=== PATIENT | male | born 1930 | race Caucasian/White ===

== ENCOUNTER 2018-05-07 09:14 | Inpatient (IN) ==
--- NOTE | 2018-05-07 09:22 | ED ---
HPI General Chief Complaint: Anxiety Stated Complaint: Evac/ Anxiety Time Seen by Provider: 05/07/18 09:19 Source: patient Mode of arrival: EMS Limitations: no limitations History of Present Illness HPI narrative: Primary care physician is Dr. GERSON knox Only allergies listed are nice and nontender Past medical history significant for atrial fibrillation, hypertension, anxiety on Xanax. Hyperlipidemia diabetes pancreatitis carotid artery stenosis CABG, kidney disease bradycardia. Patient woke up today feeling startled, feeling a fast heartbeat and anxious like in nature. patient denies meredith/cp/back pain/flank pain... After further discussion it was found that patient took himself off of Zoloft and Xanax... Patient currently denies any active chest pain. MD complaint: Reports rapid heart beat, "heart racing" and palpitations Duration: now resolved Severity: moderate Context: Reports occurred during rest Arrhythmia history: Reports on anti-coagulants Associated symptoms: Reports denies other symptoms Related Data Home Medications Medication Instructions Recorded Confirmed alprazolam [Xanax] 0.5 mg PO BID PRN 05/07/18 05/07/18 glipizide 5 mg PO BID 05/07/18 05/07/18 pioglitazone [Actos] 5 mg PO DAILY 05/07/18 05/07/18 ramipril 5 mg PO DAILY 05/07/18 05/07/18 warfarin 5 mg PO DIRECTED 05/07/18 05/07/18 Allergies Allergy/AdvReac Type Severity Reaction Status Date / Time niacin Allergy Mild Hives Verified 05/07/18 12:07 ANTARA Allergy Mild Hives Uncoded 05/07/18 12:07 Review of Systems ROS: all other systems reviewed are negative PMFSH History History Provided By: Patient Medical History Medical History Afib (Acute) Bradycardia (Acute) Carotid artery stenosis (Acute) Coronary artery disease involving coronary bypass graft (Acute) Diabetes mellitus (Acute) Dizziness (Acute) Headache (Acute) Hyperlipemia (Acute) Hypertension (Acute) Kidney disease (Acute) Pancreatitis (Acute) Prostate atrophy (Acute) Sleep apnea in adult (Acute) Syncope (Acute) Surgical History Surgical History History of coronary artery bypass surgery (Acute) Family History Family History Other No pertinent family history Social History Social History Substance History: No History of Abuse Second Hand Smoke Exposure: No Smoking Status: Never smoker How Often Do You Have a Drink Containing Alcohol: 2 to 3 times a week Recent Travel in [facility] within the Last 8 Weeks: No Recent Out of Country Travel within the Last 8 Weeks: No Exam Narrative Exam Narrative: GENERAL: Elderly male in no acute distress SKIN: Warm and dry. HEAD: Atraumatic. Normocephalic. EYES: Pupils equal and round. No scleral icterus. No injection or drainage. ENT: No nasal bleeding or discharge. Mucous membranes pink and moist. NECK: Trachea midline. No JVD. CARDIOVASCULAR: Regular rate and rhythm. no rubs or gallops RESPIRATORY: No accessory muscle use. Clear to auscultation. Breath sounds equal bilaterally. GASTROINTESTINAL: Abdomen soft, non-tender, nondistended. No rebound or guarding MUSCULOSKELETAL: Extremities without clubbing, cyanosis, or edema. No obvious deformities. NEUROLOGICAL: Awake and alert. No obvious cranial nerve deficits. Motor grossly within normal limits. Five out of 5 muscle strength in the arms and legs. Normal speech. PSYCHIATRIC: Appropriate mood and affect; insight and judgment normal. Course Initial Documented Vital Signs Temperature 98.3 F 05/07/18 09:24 Pulse Rate 82 05/07/18 09:24 Respiratory Rate 16 05/07/18 09:24 Blood Pressure 183/77 H 05/07/18 09:24 Pulse Oximetry 97 05/07/18 09:24 Last Documented Vital Signs Temperature 98.3 F 05/07/18 09:24 Pulse Rate 63 05/07/18 14:28 Respiratory Rate 16 05/07/18 14:28 Blood Pressure 149/73 H 05/07/18 14:28 Pulse Oximetry 96 05/07/18 12:17 Medical Decision Making MDM Narrative Medical decision making narrative: No leukocytosis no anemia no left shift. However there is some slight thrombocytopenia of 118,000 Appropriately anticoagulated with an INR of 2.0 Normal electrolytes except for random glucose of 227 Normal kidney liver and pancreatic functions Chest x-ray read by radiologist as no acute cardiopulmonary disease. Otherwise median sternotomy wires are noted. CK-MB normal at 2.9 however elevated troponin at 0.18 TSH within normal limits at 2.7 [facility] from [place] requested transfer due to lack of cardiac stenting/cath, d/ w vessel master rpt troponin .23 Medical Screen Exam Complete: Yes Emergency Medical Condition: Yes Lab Data Result diagrams: 05/07/18 10:00 05/07/18 10:00 Lab Results 05/07/18 05/07/18 05/07/18 Range/Units 10:00 10:00 10:00 CBC w Diff Auto diff final WBC 6.9 (4.0-11.0) th/mm3 RBC 5.22 (4.50-5.90) mil/mm3 Hgb 14.6 (13.0-17.0) gm/dL Hct 45.4 (39.0-51.0) % MCV 87.0 (80.0-100.0) fL MCH 28.0 (27.0-34.0) pg MCHC 32.2 (32.0-36.0) % RDW 15.4 (11.6-17.2) % Plt Count 118 L (150-450) th/mm3 MPV 9.9 (7.0-11.0) fL Neut % (Auto) 76.6 H (16.0-70.0) % Lymph % (Auto) 14.4 (9.0-44.0) % Hickman % (Auto) 7.6 (0.0-8.0) % Eos % (Auto) 0.8 (0.0-4.0) % Baso % (Auto) 0.6 (0.0-2.0) % Neut # (Auto) 5.3 (1.8-7.7) th/mm3 Lymph # (Auto) 1.0 (1.0-4.8) th/mm3 Hickman # (Auto) 0.5 (0.0-0.9) th/mm3 Eos # (Auto) 0.1 (0.0-0.4) th/mm3 Baso # (Auto) 0.0 (0.0-0.2) th/mm3 WBC Differential . Differential Comment . PT 20.0 H (9.8-11.6) sec INR 2.0 Ratio APTT 34.9 H (23.4-31.7) sec Sodium 138 (136-145) meq/L Potassium 4.0 (3.5-5.1) meq/L Chloride 103 (98-107) meq/L Carbon Dioxide 27.8 (21.0-32.0) meq/L Anion Gap 7 (5-15) meq/L BUN 19 H (7-18) mg/dL Creatinine 1.20 (0.60-1.30) mg/dL Estimated GFR 57 L (>89) mL/min POC Glucose (68-110) mg/dl Random Glucose 227 H (74-106) mg/dL Calcium 8.8 (8.5-10.1) mg/dL Total Bilirubin 0.9 (0.2-1.0) mg/dL AST 16 (15-37) U/L ALT 22 (12-78) U/L Alkaline Phosphatase 68 (45-117) U/L Total Creatine Kinase 217 (39-308) U/L CK-MB (CK-2) 2.9 (0.5-3.6) ng/mL Troponin I 0.18 H (0.02-0.05) ng/mL B-Natriuretic Peptide (0-100) pg/mL Total Protein 7.1 (6.4-8.2) g/dL Albumin 3.7 (3.4-5.0) g/dL Lipase 168 (73-393) U/L TSH 2.710 (0.358-3.740) uIU/mL 05/07/18 05/07/18 05/07/18 Range/Units 10:00 12:22 13:06 CBC w Diff WBC (4.0-11.0) th/mm3 RBC (4.50-5.90) mil/mm3 Hgb (13.0-17.0) gm/dL Hct (39.0-51.0) % MCV (80.0-100.0) fL MCH (27.0-34.0) pg MCHC (32.0-36.0) % RDW (11.6-17.2) % Plt Count (150-450) th/mm3 MPV (7.0-11.0) fL Neut % (Auto) (16.0-70.0) % Lymph % (Auto) (9.0-44.0) % Hickman % (Auto) (0.0-8.0) % Eos % (Auto) (0.0-4.0) % Baso % (Auto) (0.0-2.0) % Neut # (Auto) (1.8-7.7) th/mm3 Lymph # (Auto) (1.0-4.8) th/mm3 Hickman # (Auto) (0.0-0.9) th/mm3 Eos # (Auto) (0.0-0.4) th/mm3 Baso # (Auto) (0.0-0.2) th/mm3 WBC Differential Differential Comment PT (9.8-11.6) sec INR Ratio APTT (23.4-31.7) sec Sodium (136-145) meq/L Potassium (3.5-5.1) meq/L Chloride (98-107) meq/L Carbon Dioxide (21.0-32.0) meq/L Anion Gap (5-15) meq/L BUN (7-18) mg/dL Creatinine (0.60-1.30) mg/dL Estimated GFR (>89) mL/min POC Glucose 200 H (68-110) mg/dl Random Glucose (74-106) mg/dL Calcium (8.5-10.1) mg/dL Total Bilirubin (0.2-1.0) mg/dL AST (15-37) U/L ALT (12-78) U/L Alkaline Phosphatase (45-117) U/L Total Creatine Kinase 237 (39-308) U/L CK-MB (CK-2) 3.0 (0.5-3.6) ng/mL Troponin I 0.23 H (0.02-0.05) ng/mL B-Natriuretic Peptide 217 H (0-100) pg/mL Total Protein (6.4-8.2) g/dL Albumin (3.4-5.0) g/dL Lipase (73-393) U/L TSH (0.358-3.740) uIU/mL 05/07/18 Range/Units 13:43 CBC w Diff WBC (4.0-11.0) th/mm3 RBC (4.50-5.90) mil/mm3 Hgb (13.0-17.0) gm/dL Hct (39.0-51.0) % MCV (80.0-100.0) fL MCH (27.0-34.0) pg MCHC (32.0-36.0) % RDW (11.6-17.2) % Plt Count (150-450) th/mm3 MPV (7.0-11.0) fL Neut % (Auto) (16.0-70.0) % Lymph % (Auto) (9.0-44.0) % Hickman % (Auto) (0.0-8.0) % Eos % (Auto) (0.0-4.0) % Baso % (Auto) (0.0-2.0) % Neut # (Auto) (1.8-7.7) th/mm3 Lymph # (Auto) (1.0-4.8) th/mm3 Hickman # (Auto) (0.0-0.9) th/mm3 Eos # (Auto) (0.0-0.4) th/mm3 Baso # (Auto) (0.0-0.2) th/mm3 WBC Differential Differential Comment PT (9.8-11.6) sec INR Ratio APTT (23.4-31.7) sec Sodium (136-145) meq/L Potassium (3.5-5.1) meq/L Chloride (98-107) meq/L Carbon Dioxide (21.0-32.0) meq/L Anion Gap (5-15) meq/L BUN (7-18) mg/dL Creatinine (0.60-1.30) mg/dL Estimated GFR (>89) mL/min POC Glucose 159 H (68-110) mg/dl Random Glucose (74-106) mg/dL Calcium (8.5-10.1) mg/dL Total Bilirubin (0.2-1.0) mg/dL AST (15-37) U/L ALT (12-78) U/L Alkaline Phosphatase (45-117) U/L Total Creatine Kinase (39-308) U/L CK-MB (CK-2) (0.5-3.6) ng/mL Troponin I (0.02-0.05) ng/mL B-Natriuretic Peptide (0-100) pg/mL Total Protein (6.4-8.2) g/dL Albumin (3.4-5.0) g/dL Lipase (73-393) U/L TSH (0.358-3.740) uIU/mL Imaging Data Radiologist's impression: Chest X-Ray 05/07/18 09:51 CONCLUSION: No acute cardiopulmonary disease. ECG Data EKG Prior to Arrival: No Attestation: I personally reviewed and interpreted this ECG as follows: Prior ECG tracings: not available for review Interpretation: Atrial fibrillation with controlled ventricular rate. Inverted T waves in inferior lateral leads II, III, aVF, V3 through V6. No evidence of any acute ST elevation NE. Discharge Plan Discharge Disposition Patient Disposition: 02 Transfer To [facility] [place] Discharge Condition Condition: Fair Discharge Details Diagnosis: Non-ST elevated myocardial infarction (non-STEMI) Physicians Team ED Provider: Jigar Lee Primary Care Provider: Gerson Knox Attending Provider: Tangela Love Other Providers: Phil Lucas Status ED Status: Admitted Patient
[2018-05-07 10:15] LABS: Baso % (Auto) 0.6 % (0.0-2.0); Eos # (Auto) 0.1 th/mm3 (0.0-0.4); Eos % (Auto) 0.8 % (0.0-4.0); Hematocrit 45.4 % (39.0-51.0); Hemoglobin 14.6 gm/dL (13.0-17.0); Lymph % (Auto) 14.4 % (9.0-44.0); Mean Corpuscular HGB Conc 32.2 % (32.0-36.0); Mean Platelet Volume 9.9 fL (7.0-11.0); Mono # (Auto) 0.5 th/mm3 (0.0-0.9); Mono % (Auto) 7.6 % (0.0-8.0); Neut # (Auto) 5.3 th/mm3 (1.8-7.7); Neut % (Auto) 76.6 % (16.0-70.0); Platelet Count 118 th/mm3 (150-450); Red Blood Count 5.22 mil/mm3 (4.50-5.90); Red Cell Distribution Width 15.4 % (11.6-17.2); White Blood Count 6.9 th/mm3 (4.0-11.0)
--- NOTE | 2018-05-07 10:20 | XR ---
EXAM DATE: 05/07/2018 10:17 AM EST AGE/SEX: 88 years / Male INDICATIONS: Heart palpitations, anxious. CLINICAL DATA: This is the patient's initial encounter. Patient reports that signs and symptoms have been present for 1 day and indicates a pain score of 0/10. MEDICAL/SURGICAL HISTORY: Diabetes. Hypertension. Pancreatitis. A-fib. Bradycardia. CAD. Car otid artery stenosis. Kidney disease. Sleep apnea. CABG. [place] [facility] [place]. . FINDINGS: Median sternotomy wires are noted status post cardiac surgery. The heart is stable. The pulmonary vas cular pattern is normal. The lungs are clear. CONCLUSION: No acute cardiopulmonary disease. Electronically signed by: Duke Zarate MD Board Certified Radiologist 05/07/2018 10:19 AM EST
[2018-05-07 10:22] LABS: Chloride 103 meq/L (98-107); Sodium 138 meq/L (136-145)
[2018-05-07 10:26] LABS: Albumin 3.7 g/dL (3.4-5.0); Anion Gap 7 meq/L (5-15); Blood Urea Nitrogen 19 mg/dL (7-18); Calcium 8.8 mg/dL (8.5-10.1); Carbon Dioxide 27.8 meq/L (21.0-32.0); Glucose,Random 227 mg/dL (74-106); Lipase 168 U/L (73-393)
[2018-05-07 10:27] LABS: Activated Partial Thrombo Time 34.9 sec (23.4-31.7)
[2018-05-07 10:29] LABS: Alanine Aminotransferase 22 U/L (12-78); Aspartate Aminotransferase 16 U/L (15-37); Glomerular Filtration Rate 57 mL/min (>89)
[2018-05-07 10:31] LABS: Total Protein 7.1 g/dL (6.4-8.2)
[2018-05-07 10:32] LABS: Alkaline Phosphatase 68 U/L (45-117); Creatine Kinase 217 U/L (39-308)
[2018-05-07 10:34] LABS: Troponin I 0.18 ng/mL (0.02-0.05)
[2018-05-07 10:46] LABS: Creatine Kinase MB 2.9 ng/mL (0.5-3.6)
[2018-05-07] MEDS ORDERED: Docusate Sodium 100 MG Capsule PO PRN (11:53)
[2018-05-07] MEDS ORDERED: Aspirin 325 MG Tablet PO ONE (11:53)
[2018-05-07] MEDS ORDERED: Dextrose 50% in Water 50 ML Vial IV.PUSH PRN (11:59)
[2018-05-07] MEDS: Insulin NovoLOG Aspart Correctional Sugar Inj SQ SCH ×3 (12:40→21:28)
--- NOTE | 2018-05-07 13:04 | P.HP ---
History of Present Illness Primary Care Physician: Cristina Knox MD Chief Complaint: Impending doom History of Present Illness: 88-year-old male with known history of hypertension, hyperlipidemia, atrial fibrillation, coronary artery disease, diabetes who presented to the hospital because of feeling of impending doom. Patient states that he woke up at 8 AM this morning just did not feel right he had this feeling of impending doom that something bad was going to happen him so he came to the emergency department for evaluation. Patient had workup done and found to have an elevated troponin and was recommended by the ER physician the patient be admitted for non-ST elevated myocardial infarction. Patient denied any chest pain, shortness of breath, dyspnea, nausea, vomiting, diaphoresis, lightheadedness, dizziness. Patient is followed by Dr. Macario Elizondo for his significant cardiac issues. ER physician contacted reproduction artist florist supplies salesperson who recommended patient be transferred to the main hospital for further evaluation and management. - Diagnosis (1) Non-ST elevated myocardial infarction (non-STEMI) Inpatient Certification: I certify that the inpatient services were ordered in accordance with Medicare regulations governing the order. This includes certification that hospital inpatient services are reasonable and necessary and in the case of services not specified as inpatient-only under 42 CFR 419.22(n), that they are appropriately provided as inpatient services in accordance to with the 2-midnight benchmark under 43 CFR 412.3(e) Estimated Total Length of Stay (Days): 3 Plans for Post Hospital Care: Not yet determined Review of Systems All other systems reviewed negative except as stated in HPI Comments: Patient presented with feelings of impending doom [facility] - History History Provided By: Patient - Medical History Medical History: Medical History (Last Reviewed 05/07/18 @ 12:56 by DEBBI Molina) Afib Bradycardia Carotid artery stenosis Coronary artery disease involving coronary bypass graft Diabetes mellitus Dizziness Headache Hyperlipemia Hypertension Kidney disease Pancreatitis 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 Syncope - Surgical History Surgical History: Surgical History (Last Updated 05/07/18 @ 12:56 by DEBBI Molina) History of coronary artery bypass surgery - Family History Family History: Family History (Last Updated 05/07/18 @ 12:57 by DEBBI Molina) Other No pertinent family history - Tobacco History Second Hand Smoke Exposure: No Tobacco Use In Past 30 Days: No Smoking Status: Never smoker - Alcohol History How Often Do You Have a Drink Containing Alcohol: 2 to 3 times a week - Substance Use History Substance History: No History of Abuse - Travel History Recent Travel in the [place] Within the Last 8 Weeks: No Recent Travel Out of the Country Within the Last 8 Weeks: No - Immunization History Tetanus Immunization: Unsure Medications and Allergies Active Medications: Active Medications Aspirin (Ecotrin) 325 mg PO DAILY [facility] Atorvastatin Calcium (Lipitor) 10 mg PO HS [facility] Carvedilol (Coreg) 3.125 mg PO BID [facility] Dextrose (D50w Vial) 50 ml IV.PUSH UNSCH PRN PRN Reason: PER HYPOGLYCEMIA PROTOCOL Docusate Sodium (Colace) 100 mg PO BID PRN PRN Reason: CONSTIPATION Glucagon (Glucagon Inj) 1 mg OTHER PRN PRN PRN Reason: for Hypoglycemia Protocol Insulin Aspart (Novolog Insulin Correctional Sugar Inj) 0 unit SQ ACHS [facility]; Protocol Last Admin: 05/07/18 12:40 Dose: 3 unit Nitroglycerin (Nitro-Bid 2% Oint) 1 inch TOPICAL Q6HR [facility] Last Admin: 05/07/18 12:24 Dose: 1 inch Ondansetron HCl (Zofran Inj) 4 mg IV.PUSH Q6H PRN PRN Reason: NAUSEA OR VOMITING Sodium Chloride (Ns Flush) 2 ml IV.FLUSH UNSCH PRN PRN Reason: FLUSH AFTER USING IV ACCESS Sodium Chloride (Ns Inj) 2 ml IV.FLUSH BID [facility] Sodium Chloride (Ns Inj) 2 ml IV.FLUSH UNSCH PRN PRN Reason: FLUSH AFTER USING IV ACCESS Allergies Allergy/AdvReac Type Severity Reaction Status Date / Time niacin Allergy Mild Hives Verified 05/07/18 12:07 ANTARA Allergy Mild Hives Uncoded 05/07/18 12:07 Home Medications Medication Instructions Recorded Confirmed Type alprazolam [Xanax] 0.5 mg PO BID PRN 05/07/18 05/07/18 History glipizide 5 mg PO BID 05/07/18 05/07/18 History pioglitazone [Actos] 5 mg PO DAILY 05/07/18 05/07/18 History ramipril 5 mg PO DAILY 05/07/18 05/07/18 History warfarin 5 mg PO DIRECTED 05/07/18 05/07/18 History Exam Vital signs: Vital Signs 05/07/18 09:24 05/07/18 09:51 05/07/18 10:11 Temperature 98.3 F Pulse Rate 82 84 72 Respiratory Rate 16 16 Blood Pressure 183/77 H 173/88 H Pulse Oximetry 97 97 97 05/07/18 11:26 05/07/18 12:17 Temperature Pulse Rate 87 82 Respiratory Rate 16 16 Blood Pressure 174/84 H 147/88 H Pulse Oximetry 97 96 Intake & Output 05/06/18 05/07/18 05/07/18 18:59 06:59 18:59 Weight 2.551 kg Narrative: GENERAL: Well-developed, well-nourished, in no acute distress. alert and orientated HEENT: Head is normocephalic without any lesions or masses noted. Facial features are symmetric. Eyes: Pupils equal round reactive to light. Extraocular muscles are intact. Conjunctivae were clear. Oropharyngeal: Pharynx without any erythema edema. Tongue is midline without deviation. Buccal mucosa is moist without any masses or lesions NECK: Supple without any masses. Trachea midline no deviation. No JVD, no bruits are appreciated CARDIAC: Irregular rhythm, irregular rate. S1/S2 are heard. No murmurs gallops or rubs. LUNGS: Clear to auscultation bilaterally. No wheeze, rhonchi or rales. No use of accessory muscles on inspiration or expiration. ABDOMEN: Soft, nontender. Nondistended. Bowel sounds heard in all 4 quadrants. No organomegaly or masses. Negative rebound, negative guarding EXTREMITIES: No edema, pulses are equal bilaterally. No cyanosis or clubbing NEUROLOGY: Mood and affect appear appropriate. Cranial nerves II through XII grossly intact. Muscle strength 5/5 in upper and lower extremities bilaterally. Deep tendon reflexes are 2+ in upper and lower extremities bilaterally. Results - Labs CBC & Chem 7: 05/07/18 10:00 05/07/18 10:00 Labs: Laboratory Results - last 24 hr 05/07/18 05/07/18 05/07/18 10:00 10:00 10:00 CBC w Diff Auto diff final WBC 6.9 RBC 5.22 Hgb 14.6 Hct 45.4 MCV 87.0 MCH 28.0 MCHC 32.2 RDW 15.4 Plt Count 118 L MPV 9.9 Neut % (Auto) 76.6 H Lymph % (Auto) 14.4 Cotton % (Auto) 7.6 Eos % (Auto) 0.8 Baso % (Auto) 0.6 Neut # (Auto) 5.3 Lymph # (Auto) 1.0 Cotton # (Auto) 0.5 Eos # (Auto) 0.1 Baso # (Auto) 0.0 WBC Differential . Differential Comment . PT 20.0 H INR 2.0 APTT 34.9 H Sodium 138 Potassium 4.0 Chloride 103 Carbon Dioxide 27.8 Anion Gap 7 BUN 19 H Creatinine 1.20 Estimated GFR 57 L POC Glucose Random Glucose 227 H Calcium 8.8 Total Bilirubin 0.9 AST 16 ALT 22 Alkaline Phosphatase 68 Total Creatine Kinase 217 CK-MB (CK-2) 2.9 Troponin I 0.18 H B-Natriuretic Peptide Total Protein 7.1 Albumin 3.7 Lipase 168 TSH 2.710 05/07/18 05/07/18 10:00 12:22 CBC w Diff WBC RBC Hgb Hct MCV MCH MCHC RDW Plt Count MPV Neut % (Auto) Lymph % (Auto) Cotton % (Auto) Eos % (Auto) Baso % (Auto) Neut # (Auto) Lymph # (Auto) Cotton # (Auto) Eos # (Auto) Baso # (Auto) WBC Differential Differential Comment PT INR APTT Sodium Potassium Chloride Carbon Dioxide Anion Gap BUN Creatinine Estimated GFR POC Glucose 200 H Random Glucose Calcium Total Bilirubin AST ALT Alkaline Phosphatase Total Creatine Kinase CK-MB (CK-2) Troponin I B-Natriuretic Peptide 217 H Total Protein Albumin Lipase TSH - Imaging Impressions Chest X-Ray 05/07/18 09:51 CONCLUSION: No acute cardiopulmonary disease. Caprini VTE Risk Assessment Caprini VTE Risk Assessment: Moderate/High Risk (score >= 2) Caprini Risk Assessment Model: Point Value = 1 Point Value = 2 Point Value = 3 Point Value = 5 Age 41-60 Minor surgery BMI > 25 kg/m2 Swollen legs Varicose veins or History of unexplained or recurrent spontaneous Oral contraceptives or hormone replacement Sepsis (< 1 month) Serious lung disease, including pneumonia (< 1 month) Abnormal pulmonary function Acute myocardial infarction Congestive heart failure (< 1 month) History of inflammatory bowel disease Medical patient at bed rest Age 61-74 Arthroscopic surgery Major open surgery (> 45 min) Laparoscopic surgery (> 45 min) Malignancy Confined to bed (> 72 hours) Immobilizing plaster cast Central venous access Age >= 75 History of VTE Family history of VTE Factor V Leiden Prothrombin [id number] Lupus anticoagulant Anticardiolipin antibodies Elevated serum homocysteine Heparin-induced thrombocytopenia Other congenital or acquired thrombophilia Stroke (< 1 month) Elective arthroplasty Hip, pelvis, or leg fracture Acute spinal cord injury (< 1 month) Prophylaxis Regimen: Total Risk Factor Score Risk Level Prophylaxis Regimen 0-1 Low Early ambulation 2 Moderate Order ONE of the following: *Sequential Compression Device (SCD) *Heparin 5000 units SQ BID 3-4 Higher Order ONE of the following medications: *Heparin 5000 units SQ TID *Enoxaparin/Lovenox 40 mg SQ daily (WT < 150 kg, CrCl > 30 mL/min) *Enoxaparin/Lovenox 30 mg SQ daily (WT < 150 kg, CrCl > 10-29 mL/min) *Enoxaparin/Lovenox 30 mg SQ BID (WT < 150 kg, CrCl > 30 mL/min) AND/OR *Sequential Compression Device (SCD) 5 or more Highest Order ONE of the following medications: *Heparin 5000 units SQ TID (Preferred with Epidurals) *Enoxaparin/Lovenox 40 mg SQ daily (WT < 150 kg, CrCl > 30 mL/min) *Enoxaparin/Lovenox 30 mg SQ daily (WT < 150 kg, CrCl > 10-29 mL/min) *Enoxaparin/Lovenox 30 mg SQ BID (WT < 150 kg, CrCl > 30 mL/min) AND *Sequential Compression Device (SCD) Assessment and Plan - Assessment (1) Non-ST elevated myocardial infarction (non-STEMI) Code(s): I21.4 - Non-ST elevation (NSTEMI) myocardial infarction Status: Acute - Plan Non-ST elevated myocardial infarction -Patient presented to the hospital just was not feeling well with the feelings of impending doom -Initial troponin level 0.18, continue to trend cardiac enzymes to evaluate extent of injury -Initial EKG shows atrial fibrillation with T wave changes and lateral leads -Cardiology consulted for further recommendations -Patient be admitted for cardioprotection with aspirin, Coreg, ramipril, Nitropaste, Lipitor -We will obtain lipid panel -Patient remain n.p.o. at this time until cleared by cardiology Hypertension, hyper lipidemia, coronary artery disease, atrial fibrillation -Home medications will be continued -Patient is anticoagulated with Coumadin with INR 2.0 -Pharmacy consulted for Coumadin management Diabetes -Accu-Cheks with sliding scale insulin DVT prevention -Patient on Coumadin with INR 2.0 -Sequential compression devices
[2018-05-07] MEDS ORDERED: Warfarin Consult Pharmacy 1 EACH OTHER SCH (13:15)
[2018-05-07 13:36] LABS: Creatine Kinase 237 U/L (39-308)
[2018-05-07 13:37] LABS: Troponin I 0.23 ng/mL (0.02-0.05)
[2018-05-07 16:30] LABS: Troponin I 0.35 ng/mL (0.02-0.05)
[2018-05-07] MEDS ORDERED: hydrALAZINE 25 MG Tablet PO PRN (18:32)
[2018-05-07] MEDS: ALPRAZolam 0.25 MG Tablet PO PRN (21:29)
[2018-05-07 22:14] LABS: Troponin I 0.33 ng/mL (0.02-0.05)
--- NOTE | 2018-05-08 04:48 | P.CONCA ---
History of Present Illness Service: Cardiology Consult date: 05/07/18 Primary Care Provider: Cristina Knox MD Chief Complaint: Impending doom History of Present Illness: 88-year-old male with known history of hypertension, hyperlipidemia, atrial fibrillation, coronary artery disease, diabetes who presented to the hospital because of feeling "off." He woke up in the morning and just didn't feel right. Went about his day, then decided he needed to sit down. He felt like he was shaking and had some palpitations. Denies CP/SOB recently and during the event. In seeing him, he feels well without complaints Troponins were checked and mildly elevated. Review of Systems 14 systems were reviewed, pertinent positives and negatives above, otherwise negative [facility] - History History Provided By: Patient - Medical History Medical History: Medical History (Last Reviewed 05/07/18 @ 15:14 by Jigar Lee) Afib Bradycardia Carotid artery stenosis Coronary artery disease involving coronary bypass graft Diabetes mellitus Dizziness Headache Hyperlipemia Hypertension Kidney disease Pancreatitis 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 Syncope - Surgical History Surgical History: Surgical History (Last Reviewed 05/07/18 @ 15:14 by Jigar Lee) History of coronary artery bypass surgery - Family History Family History: Family History (Last Reviewed 05/07/18 @ 15:14 by Jigar eLe) Other No pertinent family history - Tobacco History Second Hand Smoke Exposure: No Tobacco Use In Past 30 Days: No Smoking Status: Never smoker - Alcohol History How Often Do You Have a Drink Containing Alcohol: 2 to 4 times a month - Substance Use History Substance History: No History of Abuse - Travel History Recent Travel in the [place] Within the Last 8 Weeks: No Recent Travel Out of the Country Within the Last 8 Weeks: No - Immunization History Tetanus Immunization: Unsure Hx Influenza Vaccine This Season: Yes Medications and Allergies Active Medications: Active Medications Alprazolam (Xanax) 0.5 mg PO BID PRN PRN Reason: Anxiety Last Admin: 05/07/18 21:29 Dose: 0.5 mg Aspirin (Ecotrin) 325 mg PO DAILY [facility] Atorvastatin Calcium (Lipitor) 10 mg PO HS [facility] Last Admin: 05/07/18 21:28 Dose: 10 mg Carvedilol (Coreg) 3.125 mg PO BID [facility] Last Admin: 05/08/18 00:16 Dose: 3.125 mg Dextrose (D50w Vial) 50 ml IV.PUSH UNSCH PRN PRN Reason: PER HYPOGLYCEMIA PROTOCOL Docusate Sodium (Colace) 100 mg PO BID PRN PRN Reason: CONSTIPATION Glucagon (Glucagon Inj) 1 mg OTHER PRN PRN PRN Reason: for Hypoglycemia Protocol Hydralazine HCl (Apresoline) 25 mg PO Q8H PRN PRN Reason: SBP > 160, DBP > 90 Pharmacy Profile Note (Coumadin Consult Pharmacy) 0 mls @ 0 mls/hr OTHER UNSCH [facility] Insulin Aspart (Novolog Insulin Correctional Sugar Inj) 0 unit SQ ACHS [facility]; Protocol Last Admin: 05/07/18 21:28 Dose: 3 unit Ondansetron HCl (Zofran Inj) 4 mg IV.PUSH Q6H PRN PRN Reason: NAUSEA OR VOMITING Ramipril (Altace) 5 mg PO DAILY [facility] Sodium Chloride (Ns Flush) 2 ml IV.FLUSH UNSCH PRN PRN Reason: FLUSH AFTER USING IV ACCESS Last Admin: 05/07/18 21:29 Dose: 2 ml Sodium Chloride (Ns Inj) 2 ml IV.FLUSH BID [facility] Last Admin: 05/08/18 00:16 Dose: 2 ml Sodium Chloride (Ns Inj) 2 ml IV.FLUSH UNSCH PRN PRN Reason: FLUSH AFTER USING IV ACCESS Warfarin Sodium (Coumadin) 2.5 mg PO DAILY@1600 [facility] Last Admin: 05/07/18 16:28 Dose: 2.5 mg Allergies Allergy/AdvReac Type Severity Reaction Status Date / Time niacin Allergy Mild Hives Verified 05/07/18 12:07 ANTARA Allergy Mild Hives Uncoded 05/07/18 12:07 dilaudid AdvReac Severe Hallucinati Uncoded 05/08/18 10:47 ons Home Medications Medication Instructions Recorded Confirmed Type alprazolam [Xanax] 0.5 mg PO BID PRN 05/07/18 05/07/18 History glipizide 5 mg PO BID 05/07/18 05/07/18 History pioglitazone [Actos] 5 mg PO DAILY 05/07/18 05/07/18 History ramipril 5 mg PO DAILY 05/07/18 05/07/18 History warfarin 5 mg PO DIRECTED 05/07/18 05/07/18 History tamsulosin [Flomax] 0.4 mg PO DAILY 05/08/18 05/08/18 History Exam Vital signs: Vital Signs 05/07/18 09:24 05/07/18 09:51 05/07/18 10:11 Temperature 98.3 F Pulse Rate 82 84 72 Respiratory Rate 16 16 Blood Pressure 183/77 H 173/88 H Pulse Oximetry 97 97 97 05/07/18 11:26 05/07/18 12:17 05/07/18 14:28 Temperature Pulse Rate 87 82 63 Respiratory Rate 16 16 16 Blood Pressure 174/84 H 147/88 H 149/73 H Pulse Oximetry 97 96 05/07/18 15:15 05/07/18 16:15 05/07/18 16:55 Temperature Pulse Rate 69 81 67 Respiratory Rate 16 16 16 Blood Pressure 149/67 H 158/79 H 154/72 H Pulse Oximetry 05/07/18 17:25 05/07/18 18:00 05/07/18 18:17 Temperature Pulse Rate 70 68 64 Respiratory Rate 18 15 18 Blood Pressure 180/75 H 147/80 H Pulse Oximetry 94 L 94 L 94 L 05/07/18 19:00 05/07/18 20:00 05/07/18 21:00 Temperature 97.7 F 97.7 F Pulse Rate 72 73 69 Respiratory Rate 19 19 20 Blood Pressure 153/72 H 153/72 H 139/61 Pulse Oximetry 96 96 96 05/07/18 22:00 05/07/18 22:50 05/07/18 23:00 Temperature Pulse Rate 72 81 Respiratory Rate 22 Blood Pressure 119/49 L 137/60 Pulse Oximetry 96 94 L 96 05/08/18 00:00 05/08/18 01:00 05/08/18 02:00 Temperature 99.1 F Pulse Rate 74 64 66 Respiratory Rate 18 22 15 Blood Pressure 153/74 H 153/77 H 117/52 L Pulse Oximetry 98 98 98 05/08/18 03:00 05/08/18 04:00 Temperature Pulse Rate 52 L 62 Respiratory Rate 14 Blood Pressure 139/72 Pulse Oximetry 90 L Intake & Output 05/07/18 05/07/18 05/08/18 06:59 18:59 06:59 Intake Total 240 / 240 Balance 240 / 240 Weight 74 kg Intake: Oral 240 / 240 Other: Weight On Admission 74 kg Narrative: GENERAL: NAD, AAOx3 SKIN: Warm and dry. HEAD: Atraumatic. Normocephalic. EYES: Pupils equal and round. No scleral icterus. No injection or drainage. ENT: No nasal bleeding or discharge. Mucous membranes pink and moist. NECK: Trachea midline. No JVD. CARDIOVASCULAR: Irregularly irregular RESPIRATORY: No accessory muscle use. Clear to auscultation. Breath sounds equal bilaterally. GASTROINTESTINAL: Abdomen soft, non-tender, nondistended. Hepatic and splenic margins not palpable. MUSCULOSKELETAL: Extremities without clubbing, cyanosis, or edema. No obvious deformities. NEUROLOGICAL: Awake and alert. No obvious cranial nerve deficits. Motor grossly within normal limits. Five out of 5 muscle strength in the arms and legs. Normal speech. PSYCHIATRIC: Appropriate mood and affect; insight and judgment normal. Results 05/08/18 04:35 05/08/18 04:35 Cardiac Enzymes 05/07/18 05/07/18 05/07/18 Range/Units 10:00 10:00 13:06 AST 16 (15-37) U/L CK-MB (CK-2) 2.9 3.0 (0.5-3.6) ng/mL Troponin I 0.18 H 0.23 H (0.02-0.05) ng/mL B-Natriuretic Peptide 217 H (0-100) pg/mL 05/07/18 05/07/18 Range/Units 16:05 21:45 AST (15-37) U/L CK-MB (CK-2) (0.5-3.6) ng/mL Troponin I 0.35 H 0.33 H (0.02-0.05) ng/mL B-Natriuretic Peptide (0-100) pg/mL Coagulation 05/07/18 05/07/18 Range/Units 10:00 10:00 PT 20.0 H (9.8-11.6) sec APTT 34.9 H (23.4-31.7) sec B-Natriuretic Peptide 217 H (0-100) pg/mL CBC 05/07/18 Range/Units 10:00 WBC 6.9 (4.0-11.0) th/mm3 RBC 5.22 (4.50-5.90) mil/mm3 Hgb 14.6 (13.0-17.0) gm/dL Hct 45.4 (39.0-51.0) % Plt Count 118 L (150-450) th/mm3 Neut # (Auto) 5.3 (1.8-7.7) th/mm3 Lymph # (Auto) 1.0 (1.0-4.8) th/mm3 [place] # (Auto) 0.5 (0.0-0.9) th/mm3 Eos # (Auto) 0.1 (0.0-0.4) th/mm3 Baso # (Auto) 0.0 (0.0-0.2) th/mm3 Comprehensive Metabolic Panel 05/07/18 Range/Units 10:00 Sodium 138 (136-145) meq/L Potassium 4.0 (3.5-5.1) meq/L Chloride 103 (98-107) meq/L Carbon Dioxide 27.8 (21.0-32.0) meq/L BUN 19 H (7-18) mg/dL Creatinine 1.20 (0.60-1.30) mg/dL Calcium 8.8 (8.5-10.1) mg/dL AST 16 (15-37) U/L ALT 22 (12-78) U/L Alkaline Phosphatase 68 (45-117) U/L Total Protein 7.1 (6.4-8.2) g/dL Albumin 3.7 (3.4-5.0) g/dL Intake and Output 05/07/18 05/07/18 05/08/18 14:59 22:59 06:59 Intake Total 240 / 240 Balance 240 / 240 Intake: Oral 240 / 240 Other: Weight 2.551 kg 74 kg Weight On Admission 74 kg Patient Weight 05/08/18 06:59 Weight 74 kg - Imaging and Cardiology Imaging: Impressions Chest X-Ray 05/07/18 09:51 CONCLUSION: No acute cardiopulmonary disease. 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 - Presence of aortocoronary bypass graft Status: Acute - Plan 1) Palpitations Possible AFib with RVR vs SVR, unsure at this time If work up negative, then would consider outpatient rhythm analysis 2) Hx of CABG x7 No recent ischemic workup 3) Elevated troponin Non-specific No angina noted Plan for Lexiscan stress test in the morning to evaluate for significan ischemia
[2018-05-08 05:00] LABS: Baso % (Auto) 0.2 % (0.0-2.0); Eos # (Auto) 0.1 th/mm3 (0.0-0.4); Eos % (Auto) 1.7 % (0.0-4.0); Hematocrit 46.6 % (39.0-51.0); Hemoglobin 14.9 gm/dL (13.0-17.0); Lymph % (Auto) 25.3 % (9.0-44.0); Mean Corpuscular Hemoglobin 27.9 pg (27.0-34.0); Mean Corpuscular Volume 87.1 fL (80.0-100.0); Mean Platelet Volume 10.3 fL (7.0-11.0); Mono # (Auto) 0.6 th/mm3 (0.0-0.9); Mono % (Auto) 7.5 % (0.0-8.0); Neut # (Auto) 5.2 th/mm3 (1.8-7.7); Neut % (Auto) 65.3 % (16.0-70.0); Platelet Count 132 th/mm3 (150-450); Red Blood Count 5.35 mil/mm3 (4.50-5.90); Red Cell Distribution Width 15.2 % (11.6-17.2); White Blood Count 7.9 th/mm3 (4.0-11.0)
[2018-05-08 05:03] LABS: Potassium 3.8 meq/L (3.5-5.1)
[2018-05-08 05:06] LABS: Calcium 8.5 mg/dL (8.5-10.1); Carbon Dioxide 25.4 meq/L (21.0-32.0)
[2018-05-08 08:32] LABS: Chol/HDL Ratio 7.99 Ratio; HDL Cholesterol 25.4 mg/dL (40.0-60.0)
[2018-05-08] MEDS: Insulin NovoLOG Aspart Correctional Sugar Inj SQ SCH ×2 (09:20→21:01)
[2018-05-08] MEDS: Ramipril 5 MG Capsule PO SCH (09:22)
--- NOTE | 2018-05-08 11:40 | P.PNIM ---
Subjective Interval history: 88-year-old male seen examined today for follow-up on chest pain, palpitations. Patient denies any recurrent chest discomfort. Etiology did evaluate the patient awaiting further testing performed. Vital signs are stable. Patient remains afebrile. Physical Exam Vital signs: Vital Signs 05/07/18 12:17 05/07/18 14:28 05/07/18 15:15 Temperature Pulse Rate 82 63 69 Respiratory Rate 16 16 16 Blood Pressure 147/88 H 149/73 H 149/67 H Pulse Oximetry 96 05/07/18 16:15 05/07/18 16:55 05/07/18 17:25 Temperature Pulse Rate 81 67 70 Respiratory Rate 16 16 18 Blood Pressure 158/79 H 154/72 H 180/75 H Pulse Oximetry 94 L 05/07/18 18:00 05/07/18 18:17 05/07/18 19:00 Temperature 97.7 F Pulse Rate 68 64 72 Respiratory Rate 15 18 19 Blood Pressure 147/80 H 153/72 H Pulse Oximetry 94 L 94 L 96 05/07/18 20:00 05/07/18 21:00 05/07/18 22:00 Temperature 97.7 F Pulse Rate 73 69 72 Respiratory Rate 19 20 22 Blood Pressure 153/72 H 139/61 119/49 L Pulse Oximetry 96 96 96 05/07/18 22:50 05/07/18 23:00 05/08/18 00:00 Temperature 99.1 F Pulse Rate 81 74 Respiratory Rate 18 Blood Pressure 137/60 153/74 H Pulse Oximetry 94 L 96 98 05/08/18 01:00 05/08/18 02:00 05/08/18 03:00 Temperature Pulse Rate 64 66 52 L Respiratory Rate 22 15 14 Blood Pressure 153/77 H 117/52 L 139/72 Pulse Oximetry 98 98 90 L 05/08/18 04:00 05/08/18 05:00 05/08/18 06:00 Temperature 97.3 F L Pulse Rate 60 58 L 66 Respiratory Rate 13 16 19 Blood Pressure 92/34 L 117/53 L Pulse Oximetry 94 L 93 L 05/08/18 07:00 Temperature 98.6 F Pulse Rate 58 L Respiratory Rate 17 Blood Pressure 110/52 L Pulse Oximetry 94 L Intake & Output 05/07/18 05/08/18 05/08/18 18:59 06:59 18:59 Intake Total 240 / 240 0 / 0 Output Total 300 / 300 Balance 240 / 240 -300 / -300 Weight 74 kg 75.7 kg Intake: Oral 240 / 240 0 / 0 Output: Urine 300 / 300 Other: Date of Last Bowel Movement 05/06/18 # Bowel Movements 0 Weight On Admission 74 kg Narrative: GENERAL: Well-developed, well-nourished, in no acute distress. alert and orientated HEENT: Head is normocephalic without any lesions or masses noted. Facial features are symmetric. Eyes: Extraocular muscles are intact. Conjunctivae were clear. NECK: Supple without any masses. Trachea midline no deviation. No JVD, CARDIAC: Irregular rhythm, irregular rate. S1/S2 are heard. No murmurs gallops or rubs. LUNGS: Clear to auscultation bilaterally. No wheeze, rhonchi or rales. No use of accessory muscles on inspiration or expiration. ABDOMEN: Soft, nontender. Nondistended. Bowel sounds heard in all 4 quadrants. No organomegaly or masses. Negative rebound, negative guarding EXTREMITIES: No edema, pulses are equal bilaterally. No cyanosis or clubbing NEUROLOGY: Mood and affect appear appropriate. Cranial nerves II through XII grossly intact. Moving all extremities, speech is clear Results - Labs CBC & Chem 7: 05/08/18 04:35 05/08/18 04:35 Laboratory Results - last 24 hr 05/07/18 05/07/18 05/07/18 12:22 13:06 13:43 CBC w Diff WBC RBC Hgb Hct MCV MCH MCHC RDW Plt Count MPV Neut % (Auto) Lymph % (Auto) [place] % (Auto) Eos % (Auto) Baso % (Auto) Neut # (Auto) Lymph # (Auto) [place] # (Auto) Eos # (Auto) Baso # (Auto) WBC Differential Differential Comment PT INR Sodium Potassium Chloride Carbon Dioxide Anion Gap BUN Creatinine Estimated GFR POC Glucose 200 H 159 H Random Glucose Calcium Total Creatine Kinase 237 CK-MB (CK-2) 3.0 Troponin I 0.23 H Triglycerides Cholesterol LDL Cholesterol, Calc HDL Cholesterol Cholesterol/HDL Ratio 05/07/18 05/07/18 05/07/18 16:05 18:24 21:19 CBC w Diff WBC RBC Hgb Hct MCV MCH MCHC RDW Plt Count MPV Neut % (Auto) Lymph % (Auto) [place] % (Auto) Eos % (Auto) Baso % (Auto) Neut # (Auto) Lymph # (Auto) [place] # (Auto) Eos # (Auto) Baso # (Auto) WBC Differential Differential Comment PT INR Sodium Potassium Chloride Carbon Dioxide Anion Gap BUN Creatinine Estimated GFR POC Glucose 153 H 219 H Random Glucose Calcium Total Creatine Kinase 217 CK-MB (CK-2) Troponin I 0.35 H Triglycerides Cholesterol LDL Cholesterol, Calc HDL Cholesterol Cholesterol/HDL Ratio 05/07/18 05/08/18 05/08/18 21:45 04:35 04:35 CBC w Diff Auto diff final WBC 7.9 RBC 5.35 Hgb 14.9 Hct 46.6 MCV 87.1 MCH 27.9 MCHC 32.0 RDW 15.2 Plt Count 132 L MPV 10.3 Neut % (Auto) 65.3 Lymph % (Auto) 25.3 [place] % (Auto) 7.5 Eos % (Auto) 1.7 Baso % (Auto) 0.2 Neut # (Auto) 5.2 Lymph # (Auto) 2.0 [place] # (Auto) 0.6 Eos # (Auto) 0.1 Baso # (Auto) 0.0 WBC Differential . Differential Comment . PT INR Sodium 139 Potassium 3.8 Chloride 104 Carbon Dioxide 25.4 Anion Gap 10 BUN 19 H Creatinine 1.20 Estimated GFR 57 L POC Glucose Random Glucose 170 H Calcium 8.5 Total Creatine Kinase 188 CK-MB (CK-2) Troponin I 0.33 H Triglycerides Cholesterol LDL Cholesterol, Calc HDL Cholesterol Cholesterol/HDL Ratio 05/08/18 05/08/18 05/08/18 04:35 04:35 08:44 CBC w Diff WBC RBC Hgb Hct MCV MCH MCHC RDW Plt Count MPV Neut % (Auto) Lymph % (Auto) [place] % (Auto) Eos % (Auto) Baso % (Auto) Neut # (Auto) Lymph # (Auto) [place] # (Auto) Eos # (Auto) Baso # (Auto) WBC Differential Differential Comment PT 20.0 H INR 2.0 Sodium Potassium Chloride Carbon Dioxide Anion Gap BUN Creatinine Estimated GFR POC Glucose 184 H Random Glucose Calcium Total Creatine Kinase CK-MB (CK-2) Troponin I Triglycerides 290 H Cholesterol 203 H LDL Cholesterol, Calc 120 H HDL Cholesterol 25.4 L Cholesterol/HDL Ratio 7.99 Assessment and Plan - Assessment (1) Non-ST elevated myocardial infarction (non-STEMI) Code(s): I21.4 - Non-ST elevation (NSTEMI) myocardial infarction Status: Acute - Plan Non-ST elevated myocardial infarction -Patient presented to the hospital just was not feeling well with the feelings of impending doom -Cardiac enzymes were performed and does continue to show elevation, possible plateauing -Serial EKGs were reviewed by myself and does show T wave abnormalities and inferior/anterior lateral leads -Cardiology consulted for further recommendations, who recommended myocardial perfusion study -Continue cardioprotection with aspirin, Coreg, ramipril, Nitropaste, Lipitor -LDL is 120 Hypertension, hyper lipidemia, coronary artery disease, atrial fibrillation -Home medications will be continued -Patient is anticoagulated with Coumadin with INR 2.0 -Pharmacy consulted for Coumadin management -Given the patient's significant LDL elevation increase his statin dosage to Lipitor 40 mg daily Diabetes -Accu-Cheks with sliding scale insulin DVT prevention -Patient on Coumadin with INR 2.0 -Sequential compression devices Discharge Planning: Discharge planning home after stress test and cleared by cardiology
[2018-05-08] MEDS ORDERED: Regadenoson Inj 0.4 MG/5 ML Syringe IV.PUSH ONE (14:47)
--- NOTE | 2018-05-08 16:55 | NM ---
EXAM DATE: 05/08/2018 4:43 PM EST AGE/SEX: 88 years / Male INDICATIONS:Coronary atherosclerosis. . CLINICAL DATA: This is the patient's initial encounter. Patient reports that signs and symptoms have been present for 1 day and indicates a pain score of 1/10. MEDICAL/SURGICAL HISTORY: Carotid stenosis. Diabetes. Hypertension. A-fib, bradycardia, jennifer nary artery disease, renal disease, pancreatitis, syncope. CABG. COMPARISON: None. DOSE: 8.7 mCi Tc 99m Myoview at rest 26.6 mCi [id number] at stress 0.4 mg Lexiscan STRESS SYMPTOMS: Short of breath and abdominal cramping. EJECTION FRACTION: 44 % TECHNIQUE: The patient underwent pharmacologic stress with infusion of prescribed dose. Continuous ECG tracing was monitored during stress. Gated SPECT imaging was performed after stress and conventi onal SPECT imaging was performed at rest. The examination was performed on a SPECT/CT scanner, both attenuation and non-corrected datasets were reviewed. FINDINGS: Distribution: The maximum perfused segment at stress is in the anterior wall. Perfusion Study: There is a large partially reversible apical and inferior wall defect. There is a summed stress score of 20. Gated Study: There is hypokinesis in the inferior septal and apical aaron. The ejection fraction i s calculated at 44%. RISK CATEGORY: Intermediate (1-3 % Annual Mortality Rate) CONCLUSION: 1. Large partially reversible apical and inferior wall defects which could indicate ischemia. 2. Decreased calculated ejection fraction of 44% and abnormal wall motion with hypokinesis in the in ferior septal and apical aaron. Electronically signed by: Kb Still MD Board Certified Radiologist 05/08/2018 4:54 PM EST
--- NOTE | 2018-05-08 18:10 | ECG ---
Date Performed: 05/07/2018 Time Performed: 10:02:56 PTAGE: 88 years EKG: ATRIAL FIBRILLATION DIFFUSE NONSPECIFIC ST-T CHANGE Compared to previous tracing, the ST-T changes anterolaterally are new. ABNORMAL ECG PREVIOUS TRACING : 10/06/2010 23.53 DOCTOR: Cuco Goldberg Interpretating Date/Time 05/08/2018 18:10:27
--- NOTE | 2018-05-08 18:13 | ECG ---
Date Performed: 05/07/2018 Time Performed: 15:57:01 PTAGE: 88 years EKG: ATRIAL FIBRILLATION DIFFUSE NONSPECIFIC ST-T CHANGE Since previous tracing, no significant change noted ABNORMAL ECG PREVIOUS TRACING : 05/07/2018 10.02 DOCTOR: Cuco Goldberg Interpretating Date/Time 05/08/2018 18:10:48
--- NOTE | 2018-05-08 18:13 | ECG ---
Date Performed: 05/07/2018 Time Performed: 21:35:50 PTAGE: 88 years EKG: ATRIAL FIBRILLATION DIFFUSE NONSPECIFIC ST-T CHANGE Since previous tracing, no significant change noted ABNORMAL ECG PREVIOUS TRACING : 05/07/2018 15.57 DOCTOR: Cuco Goldberg Interpretating Date/Time 05/08/2018 18:11:33
[2018-05-09 06:12] LABS: INR 1.7 Ratio; Prothrombin Time 16.7 sec (9.8-11.6)
[2018-05-09] MEDS ORDERED: Heparin/NS PF Inj 1,500 ML ONE (08:41)
[2018-05-09] MEDS ORDERED: Lidocaine 1% Inj 50 ML Vial ONE (08:41)
[2018-05-09] MEDS ORDERED: fentaNYL Citrate Inj 100 MCG/2 ML Ampul ONE (08:41)
[2018-05-09] MEDS ORDERED: Heparin 10,000 UNITS/10 ML Vial (for IV use) ONE (09:29)
--- NOTE | 2018-05-09 10:03 | CATHPROC ---
[employer] HIS Report Study Information Study Number Admission Scheduled Start Study Start [id number] May 07 2018 11:47AM 05/09/2018 May 09 2018 8:25AM [place] [facility] Cardiac Catheterization Admit Source Facility Department Other [facility] - [facility] Physician and Clinical Staff Initial Phil Chacko Kaitara Taraka Radha Simons RN Recorder Myriam Garduno,RT(R) Scrub Shell Cassidy,SHELLY TECH2 Procedures Performed Procedure Location (Site) Vessel Name Coronary Angiograms LCA Left Coronary Coronary Angiograms RCA Right Coronary Coronary Angiograms EVANS-LAD Left Coronary Coronary Angiograms SVG-DIAG Left Coronary Coronary Angiograms SVG-OM 1 CIRC Coronary Angiograms SVG-PDA Right Coronary Coronary Angiograms Gft. Stump 1 SVG Graft Coronary Angiograms Gft. Stump 2 SVG Graft Wire insertion Fem Art (right) Femoral Art Equipment Time Glass Robot Operator Description Size Mfg Part Number Used/Scraped TRANSDUCER, TRUWAVE [id number] 08:40 ANTONIO CHACON * Used W/JULIO *[id number] 09:34 [employer] MED[employer] VASCADE, FR5 CLOSURE SYSTEM FR 5 Used *[id number] INTRODUCER SET, 08:40 [employer] FR 5 [id number] *[id number] Used MICROPUNCTURE STIFF INTRODUCER SET, 08:40 [employer] FR 5 [id number] *[id number] Used MICROPUNCTURE STIFF [id number] *[id number] [id number] *[id number] 08:40 [employer] BLANKET,WARM AIR CCL * Used *[id number] 08:40 [employer] PACK, CCL CUSTOM * Used *[id number] 08:40 [employer] MEDICAL WIRE, 3MMJ .035 180CM 180CM Used *[id number] 08:40 NAMIC MANIFOLD, 4 PORT * Used *[id number] 08:40 [employer] OMNIPAQUE, 350 MG, 150ML 150ML [id number] Used [id number] 08:40 TERUMO MEDICAL SHEATH, FR5 TERUMO (10CM) FR 5 Used *[id number] 09:20 [employer] MEDICAL SHEATH, FR6 TERUMO (10CM) FR 6 Used *[id number] Equipment Model, Serial, Lot Number and Expiration Data Description Model Number Serial Number Lot Number Expiration Date INTRODUCER SET, [id number] 03-24-2021 MICROPUNCTURE STIFF History: Allergies Allergy Reaction niacin Hives ANTARA Hives dilaudid Hallucinations History: Risk Factors Family History of Hypertension Dyslipidemia Previous AL Previous Heart Failure Premature CAD Yes Yes Yes No No Prior Valve Prior PCI Prior CABG Surgery No No No Cerebrovascular Peripheral Artery Chronic Lung On Dialysis Diabetes Disease Disease Disease No No No No No History: Symptoms/Diagnosis Selection Items Chest pain History: Stress Tests Stress or Imaging Studies Performed Yes Standard Exercise Stress Test No Stress Echo No Stress Test SPECT Stress Test SPECT Result Stress Test SPECT Ischemia Risk/Extent Yes Positive Intermediate Stress Test CMR No Cardiac CTA Coronary Calcium Score No No Labs Hgb (g/dl) Hct (%) WBC (l/cumm) Platelets (thousands) 11.60-17.00 35.00-51.00 4.00-11.00 150.00-450.00 14.0 46 5.3 132 Glucose (mg/dl) BUN (mg/dl) Creatinine (mg/dl) BUN:Creatinine (1:x) 74.00-106.00 7.00-18.00 0.50-1.30 10.00-20.00 170 19 1.2 15.8 Na (meq/l) K (meq/l) 136.00-145.00 3.50-5.10 139 3.8 INR (PTT:PT) 0.90-1.10 1.47 CPK-MB (ng/ML) 0.50-3.60 Not Drawn Medication Medication Total Dose (Bolus/Oral) Medication Total Dosage/Unit 1% XYLOCAINE 20 mL FENTANYL 25 mcg VERSED 0.5 mg Medications (Bolus/Oral) Medication Time Given Dosage/Unit Administered By Reason VERSED 05/09/2018 8:46:55 AM 0.5 mg Radha Simons 0.5 mg VERSED given in lab by Radha Simons, RN via Peripheral IV. FENTANYL 05/09/2018 8:47:00 AM 25 mcg Radha Simons 25 mcg FENTANYL given in lab by Radha Simons, RN via Peripheral IV. 1% XYLOCAINE 05/09/2018 8:50:12 AM 20 mL Phil Lucas 20 mL 1% XYLOCAINE given in lab by Phil Lucas in Right Groin via Subcutaneous. Medication (Drip) Medication Time Given Dosage/Unit Concentration/Unit Diluent (ml) Solution IV Solutions 05/09/2018 8:25:31 AM 0 mL (IV) 500 NaCl .9 IV Solutions given in lab by Radha Simons RN in Left Antecubital via Peripheral IV. Pump/Drip Fl ow = 20 ml/hr using NaCl .9. Initial Case Assessment Cardiovascular HR Rhythm NIBP Chest Pain 73 afib 168/81 0 Edema Present Skin color Skin None Normal Warm Circulatory - Right Pulses Dorsalis Pedis Femoral 2 2 Scale (0,1,2,3,4,d) Circulatory - Left Pulses Dorsalis Pedis Femoral 2 2 Scale (0,1,2,3,4,d) Circulatory - Lower Extremities Color Lower Right Color Lower Left Normal Normal Neurological State Oriented to time-place- Alert Moves all extremities person Respiration - General Respiration Rate SpO2 (%) (B/min) 19 97 Final Case Assessment Cardiovascular HR Rhythm NIBP Chest Pain 63 afib 152/79 0 Edema Present Skin color Skin None Normal Warm Circulatory - Right Pulses Dorsalis Pedis Femoral 2 2 Scale (0,1,2,3,4,d) Circulatory - Left Pulses Dorsalis Pedis Femoral 2 2 Scale (0,1,2,3,4,d) Circulatory - Lower Extremities Color Lower Right Color Lower Left Normal Normal Neurological State Oriented to time-place- Alert Moves all extremities person Respiration - General Respiration Rate SpO2 (%) (B/min) 5 95 Chronological Log Time Study Chronological Log 8:22:10 Patient arrived via Bed. 8:23:14 Patient Name, D.O.B, / Armband Verified By R.N. 8:24:20 Consent signed by the physician and the patient and verified by the [facility] staff. 8:25:24 Pre-op and post- op instructions given; patient acknowledges understanding of instructions. 8:25:25 Verbal Stimulation=2 Physical Stimulation=2 Airway=2 Respiration=2 TOTAL=8. (0=absent, 1=li mited, 2=present) 8:25:28 Patient has been NPO for Less than 6Hrs. 8:25:29 Skin Breakdown-none 8:25:30 IV Warmer Connected To Patient. 8:25:31 A # 20 IV was noted in the Antecubital (left). Grade = 0 IV Solutions given in lab by Radha Simons, SABRINA in Left Antecubital via Peripheral IV. Pump/D rip Flow = 20 ml/hr 8:25:31 using NaCl .9. 8:25:35 History and physical on the chart or being dictated. Assessment: Initial Case, HR=73 BPM, Rhythm=afib, LRTZ=763/81 mmhg, Chest Pain=0, Edema=None, Color=Normal, Skin = Warm Right Pulses: Willy Ped=2, Femoral=2 Left Pulses: Willy Ped=2, Femoral=2 8:25:36 Lower Right Extremities: Color=Normal Lower Left Extremities: Color=Normal Neurological: State=Alert, Ox3, AVALOS Respiration: Resp=19 B/min, SpO2=97 % 8:25:37 Bilateral groins prepped with 2% chlorhexidine, and draped after a 3 minute waiting time. Vitals capture started with the following parameters, Patient=Adult, Interval=5 min, Initial Pre gatse=092 mmHg, 8:26:05 Deflation Rate=5 mmHg, Cuff placed on Right Arm 8:27:53 HR=66 bpm, MBYH=045/107 mmhg, SpO2=98.0 %, Pain=0, Lan=10, Vann=2 8:31:49 HR=69 bpm, GIXA=169/88 mmhg, SpO2=97.0 %, Resp=7 B/min, Pain=0, Lan=10, Vann=2 8:36:50 HR=73 bpm, ICYL=546/81 mmhg, SpO2=97.0 %, Resp=12 B/min, Pain=0, Lan=10, Vann=2 8:40:21 MD arrived. 8:42:17 HR=73 bpm, UVPM=671/85 mmhg, SpO2=98.0 %, Resp=19 B/min, Pain=0, Lan=10, Vann=2 8:43:55 Reference ECG taken 8:46:52 HR=70 bpm, MDMU=243/74 mmhg, SpO2=97.0 %, Resp=9 B/min, Pain=0, Lan=10, Vann=2 8:46:55 0.5 mg VERSED given in lab by Radha Simons, SABRINA via Peripheral IV. 8:47:00 25 mcg FENTANYL given in lab by Radha Simons, SABRINA via Peripheral IV. Time Out. Correct patient, correct procedure, correct physician, labs, allergies, and equipment verified with entry level lab technician 8:49:37 team present. Fire risk assesment completed (see hard stop sheet for coding). Time Out Concu rred by MD and individual staff in procedure. 8:49:41 physician aware of lab values 8:50:04 Case Start 8:50:06 Verbal Stimulation=2 Physical Stimulation=2 Airway=2 Respiration=2 TOTAL=8. (0=absent, 1=kinsey ited, 2=present) 8:50:12 20 mL 1% XYLOCAINE given in lab by Phil Lucas in Right Groin via Subcutaneous. 8:50:43 Pressure channel 1 zeroed. 8:51:49 HR=69 bpm, YMXO=063/77 mmhg, SpO2=96.0 %, Resp=17 B/min, Pain=0, Lan=10, Vann=2 8:52:42 Access site was Right Femoral Artery. 8:53:09 A wire was inserted via Fem Art (right). 8:53:11 A SHEATH, FR5 TERUMO (10CM) FR 5 was advanced into the Fem Art (right) using the Percutaneou s technique. Recorded Pressure: Ao, HR=71, Condition=Condition 1 8:53:32 (Aorta) Ao 176/69/108 8:53:53 An injection in the Fem Art (right) was made through the SHEATH, FR5 TERUMO (10CM) FR 5. A JR 4.0 INFINITI CATHETER FR 5 was advanced over a wire. OMNIPAQUE, 350 MG, 150ML 150ML was use d for 8:54:29 injections. Recorded Pressure: LV, HR=71, Condition=Condition 1 8:55:44 (Left Ventricle) LV 166/5/9 Recorded Pressure: LV, Ao, HR=72, Condition=Condition 1 8:56:02 (Left Ventricle) LV 157/7/11, (Aorta) Ao 159/60/100 Recorded Pressure: Ao, HR=64, Condition=Condition 1 8:56:23 (Aorta) Ao 164/63/103 8:56:48 HR=74 bpm, PEWF=400/86 mmhg, SpO2=95.0 %, Resp=16 B/min, Pain=0, Lan=10, Vann=2 8:56:54 The RCA was injected and visualized at various angles. OMNIPAQUE, 350 MG, 150ML 150ML used. 8:59:06 Vitals capture stopped. 9:07:22 Reference ECG taken Vitals capture started with the following parameters, Patient=Adult, Interval=5 min, Initial Pre bfimh=483 mmHg, 9:07:25 Deflation Rate=5 mmHg, Cuff placed on Right Arm 9:07:38 Pressure channel 1 zeroed. Recorded Pressure: Ao, HR=67, Condition=Condition 1 9:07:47 (Aorta) Ao 181/73/117 9:08:04 HR=62 bpm, RLSV=932/70 mmhg, SpO2=97.0 %, Resp=17 B/min, Pain=0, Lan=10, Vann=2 9:08:18 The Gft. Stump 1 was injected and visualized at various angles. OMNIPAQUE, 350 MG, 150ML 150 ML used. 9:09:03 The Gft. Stump 2 was injected and visualized at various angles. OMNIPAQUE, 350 MG, 150ML 150 ML used. 9:09:28 The SVG-DIAG was injected and visualized at various angles. OMNIPAQUE, 350 MG, 150ML 150ML u sed. 9:11:54 The SVG-OM 1 was injected and visualized at various angles. OMNIPAQUE, 350 MG, 150ML 150ML u sed. 9:13:07 HR=77 bpm, WFIV=443/78 mmhg, SpO2=95.0 %, Resp=18 B/min, Pain=0, Lan=10, Vann=2 9:13:36 The SVG-PDA was injected and visualized at various angles. OMNIPAQUE, 350 MG, 150ML 150ML us ed. 9:15:22 A WIRE, 3MMJ .035 180CM 180CM was inserted via Fem Art (right). 9:15:36 Wire removed 9:16:56 The EVANS-LAD was injected and visualized at various angles. OMNIPAQUE, 350 MG, 150ML 150ML u sed. 9:18:06 HR=64 bpm, TAOO=188/73 mmhg, SpO2=95.0 %, Resp=15 B/min, Pain=0, Lan=10, Vann=2 9:19:09 Catheter was removed A JL 4.0 INFINITI CATHETER FR 5 was advanced over a wire. OMNIPAQUE, 350 MG, 150ML 150ML was use d for 9:20:14 injections. 9:21:11 The LCA was injected and visualized at various angles. OMNIPAQUE, 350 MG, 150ML 150ML used. 9:23:05 HR=64 bpm, VSLB=891/64 mmhg, SpO2=94.0 %, Resp=15 B/min, Pain=0, Lan=10, Vann=2 9:24:53 Catheter was removed 9:28:07 HR=65 bpm, AAUW=905/68 mmhg, SpO2=95.0 %, Resp=17 B/min, Pain=0, Lan=10, Vann=2 9:33:04 HR=68 bpm, UXDL=869/79 mmhg, SpO2=96.0 %, Resp=17 B/min, Pain=0, Lan=10, Vann=2 Assessment: Final Case, HR=63 BPM, Rhythm=afib, IRCY=553/79 mmhg, Chest Pain=0, Edema=None, [place] r=Normal, Skin = Warm Right Pulses: Willy Ped=2, Femoral=2 Left Pulses: Willy Ped=2, Femoral=2 9:34:36 Lower Right Extremities: Color=Normal Lower Left Extremities: Color=Normal Neurological: State=Alert, Ox3, AVALOS Respiration: Resp=5 B/min, SpO2=95 % 9:35:24 Catheter(s) removed without difficulty 9:35:27 VASCADE, FR5 CLOSURE SYSTEM FR 5 placement in the Fem Art (right) 9:36:32 Case End (Physician broke scrub) 9:38:09 HR=62 bpm, KYXO=075/67 mmhg, SpO2=95.0 %, Resp=16 B/min, Pain=0, Aln=10, Vann=2 9:43:02 HR=73 bpm, FRHT=992/83 mmhg, SpO2=96.0 %, Resp=6 B/min, Pain=0, Lan=10, Vann=2 9:48:29 Vitals capture stopped. End Study - Contrast Media Used In Study Contrast Total Opened (mL) Total Used (mL) Total Wasted (mL) Omnipaque 350 100 100 0 End Study - Maximum Contrast Load Max Contrast Load (mL) 332.0 End Study - Radiation Exposure Fluoro Time Fluoro Dose (mGy) Cine Dose (uGym2) (minutes) 6.1 7915 71592 End Study - Sheaths Sheaths Pulled By Sheath Hold Time (min) Shell Cassidy End Study - Patient Disposition Complications Transferred To No Regular Bed
[2018-05-09] MEDS: Insulin NovoLOG Aspart Correctional Sugar Inj SQ SCH ×6 (10:20→21:48)
[2018-05-09] MEDS: Ramipril 5 MG Capsule PO SCH (10:32)
[2018-05-09] MEDS ORDERED: Iohexol 350 MG/ML 100 ML Vial (for Cath Lab) IVCONTRAST ONE (10:44)
--- NOTE | 2018-05-09 18:20 | P.PNIM ---
Subjective Interval history: Patient says he is feeling better. Denies any chest pain or shortness of breath currently. Feels like going home tomorrow. Physical Exam Vital signs: Vital Signs 05/08/18 19:00 05/08/18 20:00 05/09/18 00:00 Temperature 97.9 F 97.0 F L Pulse Rate 72 94 H 70 Respiratory Rate 28 H 29 H 20 Blood Pressure 118/79 137/64 110/64 Pulse Oximetry 94 L 94 L 95 05/09/18 03:27 05/09/18 04:00 05/09/18 08:00 Temperature 98.2 F 97.9 F Pulse Rate 74 63 74 Respiratory Rate 16 20 Blood Pressure 151/80 H 153/57 H Pulse Oximetry 100 100 05/09/18 10:00 05/09/18 10:51 05/09/18 11:00 Temperature Pulse Rate 70 76 Respiratory Rate Blood Pressure Pulse Oximetry 98 05/09/18 11:36 05/09/18 12:00 05/09/18 12:07 Temperature 98.1 F Pulse Rate 78 70 70 Respiratory Rate 20 Blood Pressure 130/65 Pulse Oximetry 100 05/09/18 13:07 05/09/18 14:00 05/09/18 15:00 Temperature Pulse Rate 63 53 L 63 Respiratory Rate Blood Pressure Pulse Oximetry 05/09/18 16:00 05/09/18 17:00 05/09/18 17:19 Temperature 97.6 F Pulse Rate 55 L 71 Respiratory Rate 20 Blood Pressure 111/56 L Pulse Oximetry 97 97 05/09/18 18:00 Temperature Pulse Rate 51 L Respiratory Rate Blood Pressure Pulse Oximetry Intake & Output 05/08/18 05/09/18 05/09/18 18:59 06:59 18:59 Intake Total 480 / 480 0 / 0 960 / 960 Output Total 600 / 600 0 / 0 710 / 710 Balance -120 / -120 0 / 0 250 / 250 Weight 75.5 kg Intake: Oral 480 / 480 0 / 0 960 / 960 Output: Urine 600 / 600 0 / 0 710 / 710 Other: Date of Last Bowel Movement 05/07/18 # Bowel Movements 0 Narrative: GENERAL: Patient sitting up in bed. Appears comfortable. Alert and oriented x3. SKIN: Warm and dry. HEAD: Normocephalic. EYES: No scleral icterus. No injection or drainage. NECK: Supple, trachea midline. No JVD. CARDIOVASCULAR: Regular rate and rhythm without murmurs, gallops, or rubs. RESPIRATORY: Breath sounds equal bilaterally. No accessory muscle use. GASTROINTESTINAL: Abdomen soft, non-tender, nondistended. MUSCULOSKELETAL: No cyanosis, or edema. BACK: Nontender without obvious deformity. No CVA tenderness. Results - Labs CBC & Chem 7: 05/08/18 04:35 05/08/18 04:35 Laboratory Results - last 24 hr 05/08/18 05/09/18 05/09/18 20:57 05:40 07:46 PT 16.7 H INR 1.7 POC Glucose 243 H 188 H 05/09/18 05/09/18 12:03 16:17 PT INR POC Glucose 233 H 224 H Assessment and Plan - Assessment (1) Non-ST elevated myocardial infarction (non-STEMI) Code(s): I21.4 - Non-ST elevation (NSTEMI) myocardial infarction Status: Acute - Plan //Non-ST elevated myocardial infarction -Patient presented to the hospital just was not feeling well with the feelings of impending doom -Cardiac enzymes were performed and does continue to show elevation, possible plateauing -Serial EKGs were reviewed by myself and does show T wave abnormalities and inferior/anterior lateral leads -Cardiology consulted for further recommendations, who recommended myocardial perfusion study -Continue cardioprotection with aspirin, Coreg, ramipril, Nitropaste, Lipitor -LDL is 120 = 05/09. Status post cardiac catheterization with no stent will disease. Report pending. Discussed with cardiology. Medications adjusted by cardiology with addition of amlodipine. If stable by tomorrow we will plan for discharge. //Hypertension, hyper lipidemia, coronary artery disease, atrial fibrillation -Home medications will be continued -Patient is anticoagulated with Coumadin with INR 2.0 -Pharmacy consulted for Coumadin management -Given the patient's significant LDL elevation increase his statin dosage to Lipitor 40 mg daily //Diabetes -Accu-Cheks with sliding scale insulin = 05/09. Blood sugars elevated in the 200s. Will start low-dose glipizide. Can restart on his home meds at discharge. //DVT prevention -Patient on Coumadin with INR 2.0 -Sequential compression devices Discharge Planning: Will order PT consult. Likely home tomorrow. Will need cardiology clearance.
[2018-05-09] MEDS: glipiZIDE 5 MG Tablet PO SCH (18:30)
--- NOTE | 2018-05-10 01:07 | P.PNCA ---
Subjective Interval history: s/p cardiac catheterization today Seen post-cath, family at that bedside No complaints Medications and Allergies Active Medications: Active Medications Alprazolam (Xanax) 0.5 mg PO BID PRN PRN Reason: Anxiety Last Admin: 05/07/18 21:29 Dose: 0.5 mg Amlodipine Besylate (Norvasc) 5 mg PO DAILY [facility] Aspirin (Ecotrin) 325 mg PO DAILY [facility] Last Admin: 05/09/18 10:22 Dose: Not Given Atorvastatin Calcium (Lipitor) 40 mg PO HS [facility] Last Admin: 05/09/18 21:40 Dose: 40 mg Carvedilol (Coreg) 3.125 mg PO BID [facility] Last Admin: 05/09/18 21:40 Dose: 3.125 mg Dextrose (D50w Vial) 50 ml IV.PUSH UNSCH PRN PRN Reason: PER HYPOGLYCEMIA PROTOCOL Docusate Sodium (Colace) 100 mg PO BID PRN PRN Reason: CONSTIPATION Glipizide (Glucotrol) 2.5 mg PO BIDAC [facility] Last Admin: 05/09/18 18:30 Dose: 2.5 mg Glucagon (Glucagon Inj) 1 mg OTHER PRN PRN PRN Reason: for Hypoglycemia Protocol Hydralazine HCl (Apresoline) 25 mg PO Q8H PRN PRN Reason: SBP > 160, DBP > 90 Pharmacy Profile Note (Coumadin Consult Pharmacy) 0 mls @ 0 mls/hr OTHER UNSCH [facility] Insulin Aspart (Novolog Insulin Correctional Sugar Inj) 0 unit SQ ACHS [facility]; Protocol Last Admin: 05/09/18 21:48 Dose: 1 unit Ondansetron HCl (Zofran Inj) 4 mg IV.PUSH Q6H PRN PRN Reason: NAUSEA OR VOMITING Last Admin: 05/09/18 21:41 Dose: 4 mg Ramipril (Altace) 5 mg PO DAILY [facility] Last Admin: 05/09/18 10:32 Dose: 5 mg Sodium Chloride (Ns Flush) 2 ml IV.FLUSH BID [facility] Last Admin: 05/09/18 21:41 Dose: 2 ml Sodium Chloride (Ns Flush) 2 ml IV.FLUSH UNSCH PRN PRN Reason: FLUSH AFTER USING IV ACCESS Tamsulosin HCl (Flomax) 0.4 mg PO DAILY [facility] Last Admin: 05/09/18 15:53 Dose: 0.4 mg Warfarin Sodium (Coumadin) 2.5 mg PO DAILY@1600 [place] Last Admin: 05/09/18 15:41 Dose: 2.5 mg Allergies Allergy/AdvReac Type Severity Reaction Status Date / Time niacin Allergy Mild Hives Verified 05/07/18 12:07 ANTARA Allergy Mild Hives Uncoded 05/07/18 12:07 dilaudid AdvReac Severe Hallucinati Uncoded 05/08/18 10:47 ons Home Medications Medication Instructions Recorded Confirmed Type alprazolam [Xanax] 0.5 mg PO BID PRN 05/07/18 05/07/18 History glipizide 5 mg PO BID 05/07/18 05/07/18 History pioglitazone [Actos] 5 mg PO DAILY 05/07/18 05/07/18 History ramipril 5 mg PO DAILY 05/07/18 05/07/18 History warfarin 5 mg PO DIRECTED 05/07/18 05/07/18 History tamsulosin [Flomax] 0.4 mg PO DAILY 05/08/18 05/08/18 History Physical Exam Vital signs: Vital Signs 05/09/18 03:27 05/09/18 04:00 05/09/18 08:00 Temperature 98.2 F 97.9 F Pulse Rate 74 63 74 Respiratory Rate 16 20 Blood Pressure 151/80 H 153/57 H Pulse Oximetry 100 100 05/09/18 10:00 05/09/18 10:51 05/09/18 11:00 Temperature Pulse Rate 70 76 Respiratory Rate Blood Pressure Pulse Oximetry 98 05/09/18 11:36 05/09/18 12:00 05/09/18 12:07 Temperature 98.1 F Pulse Rate 78 70 70 Respiratory Rate 20 Blood Pressure 130/65 Pulse Oximetry 100 05/09/18 13:07 05/09/18 14:00 05/09/18 15:00 Temperature Pulse Rate 63 53 L 63 Respiratory Rate Blood Pressure Pulse Oximetry 05/09/18 16:00 05/09/18 17:00 05/09/18 17:19 Temperature 97.6 F Pulse Rate 55 L 71 Respiratory Rate 20 Blood Pressure 111/56 L Pulse Oximetry 97 97 05/09/18 18:00 05/09/18 20:00 Temperature 98.4 F Pulse Rate 51 L 66 Respiratory Rate 16 Blood Pressure 159/70 H Pulse Oximetry 98 Intake & Output 05/09/18 05/09/18 05/10/18 06:59 18:59 06:59 Intake Total 0 / 0 960 / 960 Output Total 0 / 0 710 / 710 Balance 0 / 0 250 / 250 Weight 75.5 kg Intake: Oral 0 / 0 960 / 960 Output: Urine 0 / 0 710 / 710 Other: Date of Last Bowel Movement 05/07/18 05/07/18 # Bowel Movements 0 Narrative: GENERAL: Patient sitting up in bed. Appears comfortable. Alert and oriented x3. SKIN: Warm and dry. HEAD: Normocephalic. EYES: No scleral icterus. No injection or drainage. NECK: Supple, trachea midline. No JVD. CARDIOVASCULAR: Regular rate and rhythm without murmurs, gallops, or rubs. RESPIRATORY: Breath sounds equal bilaterally. No accessory muscle use. GASTROINTESTINAL: Abdomen soft, non-tender, nondistended. MUSCULOSKELETAL: No cyanosis, or edema. BACK: Nontender without obvious deformity. No CVA tenderness. Results 05/08/18 04:35 05/08/18 04:35 Coagulation 05/08/18 05/09/18 Range/Units 04:35 05:40 PT 20.0 H 16.7 H (9.8-11.6) sec Lipids 05/08/18 Range/Units 04:35 Triglycerides 290 H (42-150) mg/dL Cholesterol 203 H (120-200) mg/dL HDL Cholesterol 25.4 L (40.0-60.0) mg/dL Cholesterol/HDL Ratio 7.99 Ratio CBC 05/08/18 Range/Units 04:35 WBC 7.9 (4.0-11.0) th/mm3 RBC 5.35 (4.50-5.90) mil/mm3 Hgb 14.9 (13.0-17.0) gm/dL Hct 46.6 (39.0-51.0) % Plt Count 132 L (150-450) th/mm3 Neut # (Auto) 5.2 (1.8-7.7) th/mm3 Lymph # (Auto) 2.0 (1.0-4.8) th/mm3 [place] # (Auto) 0.6 (0.0-0.9) th/mm3 Eos # (Auto) 0.1 (0.0-0.4) th/mm3 Baso # (Auto) 0.0 (0.0-0.2) th/mm3 Comprehensive Metabolic Panel 05/08/18 Range/Units 04:35 Sodium 139 (136-145) meq/L Potassium 3.8 (3.5-5.1) meq/L Chloride 104 (98-107) meq/L Carbon Dioxide 25.4 (21.0-32.0) meq/L BUN 19 H (7-18) mg/dL Creatinine 1.20 (0.60-1.30) mg/dL Calcium 8.5 (8.5-10.1) mg/dL Intake and Output 05/09/18 05/09/18 05/10/18 14:59 22:59 06:59 Intake Total 960 / 960 Output Total 710 / 710 Balance 250 / 250 Intake: Oral 960 / 960 Output: Urine 710 / 710 Other: Date of Last Bowel Movement 05/07/18 05/07/18 05/07/18 # Bowel Movements 0 Weight 75.5 kg Patient Weight 05/10/18 06:59 Weight 75.5 kg - Imaging and Cardiology Imaging: Impressions Myocardial Perfusion Scan Nuc Med 05/08/18 07:00 CONCLUSION: 1. Large partially reversible apical and inferior wall defects which could indicate ischemia. 2. Decreased calculated ejection fraction of 44% and abnormal wall motion with hypokinesis in the inferior septal and apical aaron. 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 - Presence of aortocoronary bypass graft Status: Acute - Plan 1) Palpitations Possible AFib with RVR vs SVR, unsure at this time If work up negative, then would consider outpatient rhythm analysis 2) Elevated troponins Nuclear showing large inferior infarct with mild eric-infarct ischemia Cath showing significant disease of the RCA with SVG to PDA/PLB occluded Unable to intervene on SVG to PDA/PLB [place] RCA diffusely diseased, would require stenting of the whole vessel , patient with no angina so will plan to treat medically Does have multiple lesions of SVG to OM2, if chest pain in the future would plan intervention, but would require stenting of multiple lesions 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 Elizondo
[2018-05-10] MEDS: ALPRAZolam 0.25 MG Tablet PO PRN (03:07)
[2018-05-10] MEDS ORDERED: amLODIPine 5 MG Tablet PO SCH (09:00)
[2018-05-10] MEDS: Ramipril 5 MG Capsule PO SCH (09:08)
[2018-05-10] MEDS: glipiZIDE 5 MG Tablet PO SCH (09:09)
[2018-05-10] MEDS: Insulin NovoLOG Aspart Correctional Sugar Inj SQ SCH (09:09)
[2018-05-10 09:30] LABS: INR 1.4 Ratio; Prothrombin Time 14.2 sec (9.8-11.6)
--- NOTE | 2018-05-10 12:38 | P.PN ---
Subjective Interval history: Follow-up non-ST elevation CT May 10, 2018-patient seen and examined, reports improvement of shortness of breath and denies any chest pain. Requesting a prescription for Xanax. Case discussed with cardiology this a.m. Physical Exam Vital signs: Vital Signs 05/09/18 13:07 05/09/18 14:00 05/09/18 15:00 Temperature Pulse Rate 63 53 L 63 Respiratory Rate Blood Pressure Pulse Oximetry 05/09/18 16:00 05/09/18 17:00 05/09/18 17:19 Temperature 97.6 F Pulse Rate 55 L 71 Respiratory Rate 20 Blood Pressure 111/56 L Pulse Oximetry 97 97 05/09/18 18:00 05/09/18 19:00 05/09/18 20:00 Temperature 98.4 F Pulse Rate 51 L 66 58 L Respiratory Rate 16 Blood Pressure 159/70 H Pulse Oximetry 98 05/09/18 21:00 05/09/18 22:00 05/09/18 23:00 Temperature Pulse Rate 54 L 58 L 62 Respiratory Rate Blood Pressure Pulse Oximetry 05/10/18 00:00 05/10/18 01:00 05/10/18 02:00 Temperature Pulse Rate 50 L 56 L 67 Respiratory Rate Blood Pressure Pulse Oximetry 05/10/18 03:00 05/10/18 03:28 05/10/18 04:00 Temperature Pulse Rate 58 L 58 L 62 Respiratory Rate 16 Blood Pressure 108/58 L Pulse Oximetry 98 05/10/18 05:00 05/10/18 05:45 05/10/18 07:00 Temperature Pulse Rate 55 L 60 60 Respiratory Rate Blood Pressure Pulse Oximetry 05/10/18 07:55 05/10/18 09:47 Temperature 97.8 F Pulse Rate 63 Respiratory Rate 18 Blood Pressure 148/77 H Pulse Oximetry 97 97 Intake & Output 05/09/18 05/10/18 05/10/18 18:59 06:59 18:59 Intake Total 960 / 960 360 / 360 Output Total 710 / 710 280 / 280 Balance 250 / 250 80 / 80 Weight 75.5 kg 75.1 kg Intake: Oral 960 / 960 360 / 360 Output: Urine 710 / 710 280 / 280 Other: Date of Last Bowel Movement 05/07/18 05/07/18 05/07/18 # Bowel Movements 0 Narrative: GENERAL: NAD SKIN: Warm and dry. HEAD: Atraumatic. Normocephalic. EYES: Pupils equal and round. No scleral icterus. No injection or drainage. ENT: No nasal bleeding or discharge. Mucous membranes pink and moist. NECK: Trachea midline. No JVD. CARDIOVASCULAR: Regular rate and rhythm. RESPIRATORY: No accessory muscle use. Clear to auscultation. Breath sounds equal bilaterally. GASTROINTESTINAL: Abdomen soft, non-tender, nondistended. Hepatic and splenic margins not palpable. MUSCULOSKELETAL: Extremities without clubbing, cyanosis, or edema. No obvious deformities. NEUROLOGICAL: Awake and alert. No obvious cranial nerve deficits. Motor grossly within normal limits. Five out of 5 muscle strength in the arms and legs. Normal speech. PSYCHIATRIC: Appropriate mood and affect; insight and judgment normal. Results - Labs CBC & Chem 7: 05/08/18 04:35 05/08/18 04:35 Laboratory Results - last 24 hr 05/09/18 05/09/18 05/10/18 16:17 21:20 07:33 PT 14.2 H INR 1.4 POC Glucose 224 H 172 H 05/10/18 07:59 PT INR POC Glucose 151 H - Procedures None Assessment and Plan - Assessment (1) Non-ST elevated myocardial infarction (non-STEMI) Code(s): I21.4 - Non-ST elevation (NSTEMI) myocardial infarction Status: Acute - Plan 88-year-old man with Non-ST elevation CT ACS ruled out per protocol with serial cardiac enzyme and EKGs Patient had a left heart catheterization with no stent placed Currently on aspirin, Coreg, ramipril, Lipitor Appreciate input from cardiology Hypertension Normotensive on Norvasc, ramipril, Coreg Paroxysmal atrial fibrillation Beta-jhonathan and Coumadin, monitor INR Hyperlipidemia Continue with Lipitor Diabetes type 2 Continue with home medications including oral antihyperglycemic agents glipizide DVT prophylaxis: Coumadin
--- NOTE | 2018-05-10 12:41 | P.DS ---
Date of admission: 05/07/18 11:47 Primary care physician: Cristina Knox MD Brief History from admission: 88-year-old male with known history of hypertension, hyperlipidemia, atrial fibrillation, coronary artery disease, diabetes who presented to the hospital because of feeling of impending doom. Patient states that he woke up at 8 AM this morning just did not feel right he had this feeling of impending doom that something bad was going to happen him so he came to the emergency department for evaluation. Patient had workup done and found to have an elevated troponin and was recommended by the ER physician the patient be admitted for non-ST elevated myocardial infarction. Patient denied any chest pain, shortness of breath, dyspnea, nausea, vomiting, diaphoresis, lightheadedness, dizziness. Patient is followed by Dr. Macario Elizondo for his significant cardiac issues. ER physician contacted workday senior associate professional benefits sales consultant who recommended patient be transferred to the main hospital for further evaluation and management. DS: Diagnosis - Discharge Diagnosis (1) Non-ST elevated myocardial infarction (non-STEMI) Status: Acute DS: Medications - Discharge Medications Prescriptions: alprazolam [Xanax] 0.5 mg PO BID PRN #10 mg PRN Reason: Anxiety amlodipine [Norvasc] 5 mg PO DAILY #30 tab aspirin [Enteric Coated Aspirin] 81 mg PO DAILY #30 tab atorvastatin 40 mg PO HS #30 tab carvedilol [Coreg] 3.125 mg PO BID #60 tab warfarin 5 mg PO DIRECTED #30 mg DS: Summary Hospital Course: Patient admitted with non-ST elevation [place] for which cardiology was consulted and he underwent left heart catheterization without any stent placed. He was treated with TOMAS inhibitor, beta-jhonathan, aspirin and Lipitor which was increased to 40 mg daily. ACS was ruled out per protocol with serial cardiac enzyme and EKGs. Secondary to labile benign hypertension, patient's antihypertensive medications were adjusted accordingly and Lovenox was initiated. He was started on a sliding scale insulin with monitoring of fingerstick blood glucose. He was subsequently restarted on his home medications. Patient was continued on his treatment of other chronic medical conditions. DVT and GI prophylactic were provided. Prior to discharge, patient conditions improved and vitals remained stable. - Time Spent with Patient Total time spent providing and/or coordinating discharge services: Less than 30 minutes - Quality: VTE Deep Vein Thrombosis/Pulmonary Embolism Present on Admission: No Exam Vital signs: Vital Signs 12/21/18 13:07 05/09/18 14:00 05/09/18 15:00 Temperature Pulse Rate 63 53 L 63 Respiratory Rate Blood Pressure Pulse Oximetry 05/09/18 16:00 05/09/18 17:00 05/09/18 17:19 Temperature 97.6 F Pulse Rate 55 L 71 Respiratory Rate 20 Blood Pressure 111/56 L Pulse Oximetry 97 97 05/09/18 18:00 05/09/18 19:00 05/09/18 20:00 Temperature 98.4 F Pulse Rate 51 L 66 58 L Respiratory Rate 16 Blood Pressure 159/70 H Pulse Oximetry 98 05/09/18 21:00 05/09/18 22:00 05/09/18 23:00 Temperature Pulse Rate 54 L 58 L 62 Respiratory Rate Blood Pressure Pulse Oximetry 05/10/18 00:00 05/10/18 01:00 05/10/18 02:00 Temperature Pulse Rate 50 L 56 L 67 Respiratory Rate Blood Pressure Pulse Oximetry 05/10/18 03:00 05/10/18 03:28 05/10/18 04:00 Temperature Pulse Rate 58 L 58 L 62 Respiratory Rate 16 Blood Pressure 108/58 L Pulse Oximetry 98 05/10/18 05:00 05/10/18 05:45 05/10/18 07:00 Temperature Pulse Rate 55 L 60 60 Respiratory Rate Blood Pressure Pulse Oximetry 05/10/18 07:55 05/10/18 09:47 Temperature 97.8 F Pulse Rate 63 Respiratory Rate 18 Blood Pressure 148/77 H Pulse Oximetry 97 97 Intake & Output 05/09/18 05/10/18 05/10/18 18:59 06:59 18:59 Intake Total 960 / 960 360 / 360 Output Total 710 / 710 280 / 280 Balance 250 / 250 80 / 80 Weight 75.5 kg 75.1 kg Intake: Oral 960 / 960 360 / 360 Output: Urine 710 / 710 280 / 280 Other: Date of Last Bowel Movement 05/07/18 05/07/18 05/07/18 # Bowel Movements 0 Narrative: GENERAL: NAD SKIN: Warm and dry. HEAD: Atraumatic. Normocephalic. EYES: Pupils equal and round. No scleral icterus. No injection or drainage. ENT: No nasal bleeding or discharge. Mucous membranes pink and moist. NECK: Trachea midline. No JVD. CARDIOVASCULAR: Regular rate and rhythm. RESPIRATORY: No accessory muscle use. Clear to auscultation. Breath sounds equal bilaterally. GASTROINTESTINAL: Abdomen soft, non-tender, nondistended. Hepatic and splenic margins not palpable. MUSCULOSKELETAL: Extremities without clubbing, cyanosis, or edema. No obvious deformities. NEUROLOGICAL: Awake and alert. No obvious cranial nerve deficits. Motor grossly within normal limits. Five out of 5 muscle strength in the arms and legs. Normal speech. PSYCHIATRIC: Appropriate mood and affect; insight and judgment normal. Results Procedures completed during hospitalization: None Labs on day of discharge: Labs from last 24 hours 05/10/18 05/10/18 05/09/18 07:59 07:33 21:20 PT 14.2 H INR 1.4 POC Glucose 151 H 172 H 05/09/18 16:17 PT INR POC Glucose 224 H - Impressions ITS Impressions Chest X-Ray 05/07/18 09:51 CONCLUSION: No acute cardiopulmonary disease. Myocardial Perfusion Scan Nuc Med 05/08/18 07:00 CONCLUSION: 1. Large partially reversible apical and inferior wall defects which could indicate ischemia. 2. Decreased calculated ejection fraction of 44% and abnormal wall motion with hypokinesis in the inferior septal and apical aaron. Discharge Plan - Discharge Disposition Patient Disposition: Discharge Home - Discharge Condition Condition: Fair - Discharge Order Discharge Orders: Discharge Order (Routine); Ordered 05/10/18 Ordered By: Vincent Ga - Physicians Team Primary Care Provider: Cristina Knox Attending Provider: Vincent Ga Other Providers: Phil Lucas DO
--- NOTE | 2018-05-10 16:08 | MA ---
cc: Phil Lucas DO DATE: 05/09/2018 DATE OF PROCEDURE: 05/09/2018. PROCEDURE: Left heart catheterization, coronary angiogram, bypass angiogram, moderate sedation 40 minutes. PREPROCEDURE DIAGNOSES: Palpitations, elevated troponin, abnormal stress test (intermediate risk). 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 MEDICATIONS: Versed 1 mg, fentanyl 25 mcg. CONTRAST USED: 100 mL. FLUOROSCOPY: 6.1 minutes. MODERATE SEDATION: 40 minutes. FRAILTY SCORE: 4. ESTIMATED BLOOD LOSS: 10 mL. PROCEDURAL SUMMARY: Duke Sinclair is a pleasant 88-year-old male who sees my partner, Dr. Elizondo, in the office and presented to [facility] due to palpitations as well as anxiety. Troponins were checked and they were found to be elevated, but as he had no symptoms of angina, I decided that a stress test would be appropriate. During the stress test, he was found to have a large inferior infarct with mild eric-infarct ischemia. He was recommended cardiac catheterization. Risks, benefits, and alternatives were explained to him and he consented to such. He was brought to the lab and prepped in the usual sterile fashion. The right femoral artery was accessed using a modified Seldinger technique and placement of a 5-Mohawk sheath. This was easily aspirated and flushed. A JR4 was advanced over a J-wire to the ascending aorta and across the aortic valve for measurement of left ventricular pressure. This was pulled back across the aortic valve, showing no significant gradient of aortic stenosis. JR4 was used for selective angiography of the [place] right coronary, the saphenous vein graft to the LAD, the saphenous vein graft to the diagonal, the saphenous vein graft to the first obtuse marginal, the saphenous vein graft to the second obtuse marginal, the saphenous vein graft, which is a Y-graft, to the PDA as well as the posterolateral branch and the EVANS to LAD. This was exchanged out for a JL4, which was used for selective angiography of the left coronary artery system. JL4 was removed over a J wire. Arteriotomy was closed with a VASCADE device. The patient left the cardiac catheterization technologist cardiovascularly stable. FINDINGS: LEFT MAIN: Normal-sized vessel with adequate reflux. It appears to have 10% disease before trifurcating into an LAD, ramus, and circumflex. LAD: Moderate size vessel with 90% disease throughout the proximal portion. It supplies 1 diagonal before 100% occlusion in the mid portion. Diagonal is overall small vessel with diffuse 90% disease throughout the proximal portion. RAMUS: Overall small vessel of 1.5 mm with a 60% lesion in the proximal portion, an 80% lesion in the mid portion, and distal to this it appears that there is some myocardial bridging. Overall, this vessel covers very little myocardium. LEFT CIRCUMFLEX: Small to moderate sized vessel with diffuse 50% disease throughout. It appears that the first and second obtuse marginals are both occluded. Distally, it supplies an overall small circumflex proper. RCA: Small to moderate vessel with overall diffuse disease. Proximal appears to be diseased 70-80%. Mid portion has a 99% lesion and then diffusely, 70-90% distal to this. The posterolateral branch does fill off of this. It appears that the PDA is subtotally occluded with some contrast hang up. EVANS to LAD is patent and fills a very short segment of the mid LAD. Distal to this it is occluded and it fills a subtotal diagonal. SVG to LAD is occluded. SVG to OM1 is occluded. SVG to diagonal is patent with no disease. It fills a diagonal and retrogradely fills a second diagonal which was seen from the [place] LAD with a 90% lesion in the proximal portion. SVG to OM1 is occluded. SVG to OM2 is patent with multiple lesions throughout. Proximally, it appears to have 60-70% disease. Mid portion has 60-70% disease. Distal portion has 80% disease before a valve. At the anastomosis there appears to be an 80% lesion going antegrade and a 95% lesion going retrograde. Y-graft to PDA/PLB has a 95% lesion at the proximal portion, has a 95% lesion filling a distal PLB and it appears that the portion going to the PDA is occluded. LVEDP 11. IMPRESSION: 1. Minimally elevated troponin. 2. Abnormal stress test (intermediate risk). 3. Multivessel disease with a history of coronary artery bypass graft x7 (3/7 grafts patent). RECOMMENDATIONS: 1. Mr. Sinclair presented with palpitations and no angina, but was found to have an elevated troponin. 2. His stress test shows inferior infarct with some eric-infarct ischemia. Ultimately, I believe this is probably due to his diffusely diseased RCA and closure of his graft to his PDA. 3. Unfortunately, there is no way to intervene on the graft due to its closure. The [place] RCA is so significantly diffusely diseased that I do not think that intervention is possible this is mostly an infarcted area. 4. He does have a vein graft to a second obtuse marginal, which has multiple lesions throughout, but as the patient is relatively asymptomatic with no angina, I would continue to treat this medically. 5. He was noted to be quite hypertensive throughout his hospital stay and we will plan on adding Norvasc for its antihypertensive and antianginal properties. 6. The patient has recently been started on testosterone and I explained to him that this may not be his best option as it puts him at a higher risk of myocardial infarction as well as thromboembolic syndrome. He will discuss this further with his primary care physician. 7. He can be started back on his Coumadin. He will be watched overnight and if stable in the morning, discharged home for follow up with Dr. Elizondo. Thank you for allowing me to see Duke Sinclair. If there are any questions, please do not hesitate to call. Phil Lucas DO P/ , 02:34 PM , 02:49 PM
== END 2018-05-10 11:47 | disposition home or self-care (01) ==
LOC: PHED 09:14 → PHEDH 11:47 → PHICU 17:47 → PH3 05-08 23:32 → HCIS 05-09 03:14
PROVIDERS: ADMIT Hospitalist; ATTEND Hospitalist